=== PATIENT | male | born 1990 | race African-American/Black ===

== ENCOUNTER 2020-01-09 10:35 | Emergency (ER) | payer OTHER, SELFPAY ==
[2020-01-09 10:48] VITALS: BP 158/99; PULSE 79; RESP 14; TEMP 36.6; O2SAT 100
[2020-01-09 11:16] VITALS: BP 118/75; PULSE 78; RESP 16; O2SAT 100
--- NOTE | 2020-01-09 11:16 | PC.NURSE ---
PT CARE ASSUMED AT THIS TIME AFTER REPORT FROM [facility].
--- NOTE | 2020-01-09 11:17 | ED.EAR ---
HPI - Ear Problem General Chief complaint: Ear Stated complaint: fever, cough, ST Time Seen by Provider: 01/09/20 11:12 Source: patient Mode of arrival: ambulatory Limitations: no limitations History of Present Illness HPI Narrative: This is a 29-year-old male that presents the emergency department for left ear pain since yesterday. Reports mild cough, and congestion for the last 3 days. Reports yesterday his left ear started to become painful. Denies fever or drainage. Related Data Home Medications Medication Instructions Recorded Confirmed insulin glargine [Basaglar KwikPen unit SUBCUT 01/09/20 U-100 Insulin] insulin lispro [Humalog KwikPen unit SUBCUT 01/09/20 Insulin] Allergies Allergy/AdvReac Type Severity Reaction Status Date / Time shellfish derived Allergy Severe Anaphylactic Verified 01/09/20 10:51 Shock iodine Allergy Unknown Anaphylactic Verified 01/09/20 10:51 Shock Review of Systems Review of Systems: Narrative: CONSTITUTIONAL: Denies fever ENT: Reports congestion, and otalgia. Denies sore throat RESPIRATORY: Reports cough. Denies dyspnea. All systems reviewed & are unremarkable except as noted in HPI and below PMFSH Past Medical History Medical History (Updated 01/09/20 @ 11:24 by Nicole Garcia PA-C) History of diabetes mellitus Social History Social History Smoking status: Never smoker Second hand tobacco smoke exposure: No Gender identity (if verbalized by the patient): Male Exam Narrative: Exam Narrative: GENERAL: Well-appearing, obese, and in no acute distress. HEAD: Normocephalic, atraumatic. EYES: EOMI. ENT: Turbinates swollen and pale. Mucous membranes moist. Oropharynx without tonsillar hypertrophy exudate or other lesions. Bilateral TMs pearly dupont non-bulging. Left external auditory canal with mild irritation and erythema NECK: Supple. No adenopathy or masses. CHEST: Clear to auscultation. No respiratory distress. No wheezes rales or rhonchi HEART: Regular rate and rhythm. No murmur heard. Normal peripheral pulses. EXTREMITIES: Normal range of motion. No edema. SKIN: Warm, dry, no rash. NEURO: No focal deficits. Alert and oriented x3. PSYCH: Normal mood and affect Course Vital Signs Vital signs: Vital Signs Temperature 97.8 F 01/09/20 10:48 Pulse Rate 79 01/09/20 10:48 Respiratory Rate 14 01/09/20 10:48 Blood Pressure 158/99 H 01/09/20 10:48 Pulse Oximetry 100 01/09/20 10:48 Temperature 97.8 F 01/09/20 10:48 Pulse Rate 78 01/09/20 11:16 Respiratory Rate 16 01/09/20 11:16 Blood Pressure 118/75 01/09/20 11:16 Pulse Oximetry 100 01/09/20 11:16 Medical Decision Making MDM Narrative Medical decision making narrative: Patient presents the emergency department for cold symptoms x3 days. Reports left ear pain since yesterday. Patient is afebrile and nontoxic-appearing. Lungs are clear on exam. Left external auditory canal with mild irritation and erythema. Patient will be started on antibiotic eardrops. He is to follow-up with his primary care doctor. He was given warnings to return to the ER Vital Signs Vital Signs: Vital Signs Temperature 97.8 F 01/09/20 10:48 Pulse Rate 79 01/09/20 10:48 Respiratory Rate 14 01/09/20 10:48 Blood Pressure 158/99 H 01/09/20 10:48 Pulse Oximetry 100 01/09/20 10:48 Temperature 97.8 F 01/09/20 10:48 Pulse Rate 78 01/09/20 11:16 Respiratory Rate 16 01/09/20 11:16 Blood Pressure 118/75 01/09/20 11:16 Pulse Oximetry 100 01/09/20 11:16 Critical Care Time Critical Care Time Critical Care Time: No Discharge Plan Discharge Clinical Impression: Otitis externa Qualifiers: Otitis externa type: unspecified type Chronicity: acute Laterality: left Qualified Code(s): H60.502 - Unspecified acute noninfective otitis externa, left ear Patient Disposition: Home, Self-Care Condition: Stable Instructions: Otitis Externa (ED) Add
[2020-01-09 11:44] VITALS: BP 134/58; PULSE 75; RESP 16; O2SAT 100
== END 2020-01-09 11:45 | disposition home or self-care (01) ==
PROVIDERS: Emergency Provider Emergency Medicine
DX: H60.502 Unspecified acute noninfective otitis externa, left ear (principal); E11.9 Type 2 diabetes mellitus without complications
CPT/HCPCS: 99283

== ENCOUNTER 2020-04-13 16:54 | Emergency (ER) | payer OTHER, SELFPAY ==
[2020-04-13 17:12] VITALS: BP 145/82; PULSE 93; RESP 18; TEMP 37.1; O2SAT 99
[2020-04-13] MEDS: IBUPROFEN 400 MG TABLET 800 MG PO (17:34)
--- NOTE | 2020-04-13 17:53 | ED.GENADULT ---
HPI - General Adult General Chief complaint: Wound/Laceration Stated complaint: LUMP ON MY BACK Time Seen by Provider: 04/13/20 17:01 Source: patient Mode of arrival: ambulatory Limitations: no limitations History of Present Illness HPI narrative: Patient is a 29-year-old male who presents to emergency department for evaluation of wound to the upper thoracic back that has been present now for over a week patient notes that is gradually increased in size with moderate aching pain worse with palpation and touch patient denies any fever chills nausea vomiting. Patient notes he is a diabetic and states that his blood sugars run from 1 50-200 normal and have been. Patient on arrival is in the room in no distress and has not taken anything for his symptoms Related Data Home Medications Medication Instructions Recorded Confirmed insulin glargine [Basaglar KwikPen unit SUBCUT 01/09/20 U-100 Insulin] insulin lispro [Humalog KwikPen unit SUBCUT 01/09/20 Insulin] Allergies Allergy/AdvReac Type Severity Reaction Status Date / Time shellfish derived Allergy Severe Anaphylactic Verified 01/09/20 10:51 Shock iodine Allergy Unknown Anaphylactic Verified 01/09/20 10:51 Shock Review of Systems Review of Systems: All systems reviewed & are unremarkable except as noted in HPI and below PMFSH Past Medical History Medical History History of diabetes mellitus Social History Social History Smoking status: Never smoker Second hand tobacco smoke exposure: No Gender identity (if verbalized by the patient): Male Exam Narrative: Exam Narrative: GENERAL: Well-appearing, well-nourished, and in no acute distress. HEAD: Normocephalic, atraumatic. EYES: PERRLA and EOMI. ENT: Nares clear, no rhinorrhea or epistaxis. Mucous membranes moist. CHEST: Clear to auscultation. No respiratory distress. No wheezes rales or rhonchi HEART: Regular rate and rhythm. No murmur heard. EXTREMITIES: Normal range of motion. No edema. SKIN: Warm, dry, no rash. Patient with tender swollen fluctuant lesion overlying the upper thoracic midline region between the scapula slight redness no drainage. Area measures approximately 9 cm in diameter NEURO: No focal deficits. Alert and oriented x3. Cranial nerves II through XII grossly intact PSYCH: Normal mood and affect. Course Course Emergency Course: Patient in the room aware of case findings treatment plan and diagnosis agreeing to follow-up as directed with general surgery is aware of discussion with surgery and will follow with them this week Consultations Consultation #1: Discussed case with general surgery who will follow the patient this week recommends packing the wound oral antibiotics Date: 04/13/20 Time: 17:55 Vital Signs Vital signs: Vital Signs Temperature 98.7 F 04/13/20 17:12 Pulse Rate 93 04/13/20 17:12 Respiratory Rate 18 04/13/20 17:12 Blood Pressure 145/82 H 04/13/20 17:12 Pulse Oximetry 99 04/13/20 17:12 Temperature 98.7 F 04/13/20 17:12 Pulse Rate 93 04/13/20 17:12 Respiratory Rate 18 04/13/20 17:12 Blood Pressure 145/82 H 04/13/20 17:12 Pulse Oximetry 99 04/13/20 17:12 Procedures Abscess I/D back: Date of Incision: 04/13/20 Time of Incision: 17:56 Local Anesthetic: lidocaine 1% Technique: needle aspiration and incised with #11 blade Irrigation: Yes Packing used?: iodoform I&D Results: Pus (25 mL of purulent drainage obtained) Abcess I&D Additional Comments: Patient tolerated procedure without difficulty iodoform packing was placed post procedure Medical Decision Making MDM Narrative Medical decision making narrative: Patient with abscess that was I&D in the emergency department with iodoform packing afebrile nontoxic-appearing will follow with general surgery this
== END 2020-04-13 18:39 | disposition home or self-care (01) ==
PROVIDERS: Emergency Provider Emergency Medicine
DX: L02.212 Cutaneous abscess of back [any part, except buttock and flank] (principal); E11.9 Type 2 diabetes mellitus without complications; Z79.4 Long term (current) use of insulin
CPT/HCPCS: 10061; 99283; A9270

== ENCOUNTER 2020-05-10 12:55 | Outpatient (CLI) | payer OTHER, SELFPAY ==
--- NOTE | 2020-05-10 12:57 | ECG_ITS ---
Measurements Intervals Winder Rate: 74 P: 46 VT: 161 QRS: 5 QRSD: 94 T: 9 QT: 356 QTc: 397 Interpretive Statements SINUS RHYTHM NORMAL ECG Electronically Signed On 05-10-2020 13:31:26 CDT by Wade Torres D.O.
[2020-05-10 13:31] LABS: Hematocrit 41.8 % (42.0-52.0); Hemoglobin 13.3 g/dL (14.0-18.0); Immature Platelet Fraction Pct 10.9 % (0.9-11.2); Mean Corpuscular HGB Conc 31.8 g/dl (32-36); Mean Corpuscular Hemoglobin 25.6 pg (26-34); Mean Corpuscular Volume 80.5 fl (80-100); Mean Platelet Volume 13.1 fl (7.4-10.4); Platelet Count Result 202 k/mm3 (150-375); Red Blood Count 5.19 M/mm3 (4.6-6.20); Red Cell Distribution Width 14.9 % (11.5-14.5); White Blood Count 4.8 K/mm3 (4.5-10.0)
[2020-05-10 13:47] LABS: Blood Urea Nitrogen 13 mg/dL (9-20); Calcium 8.9 mg/dL (8.4-10.2); Carbon Dioxide 25 mmol/L (22-30); Chloride 103 mmol/L (98-107); Estimated Glomerular Filt Rate > 60; Glucose 309 mg/dL (75-110); Sodium 136 mmol/L (137-145)
[2020-05-10 13:53] LABS: Potassium 4.2 mmol/L (3.4-5.0)
== END 2020-05-10 12:56 | disposition home or self-care (01) ==
LOC: ANHSURGERY 12:57
PROVIDERS: Anesthesiology; Visit Provider Surgery
DX: L02.212 Cutaneous abscess of back [any part, except buttock and flank] (principal); Z86.39 Personal history of other endocrine, nutritional and metabolic disease
CPT/HCPCS: 36415; 80048; 85027; 85055; 93005

== ENCOUNTER 2020-05-14 01:10 | Outpatient (CLI) | payer OTHER, SELFPAY ==
[2020-05-14 18:05] LABS: SARS-CoV-2 RNA PCR Negative
== END 2020-05-14 01:11 | disposition home or self-care (01) ==
LOC: ANHCOVIDDT 01:11
PROVIDERS: Visit Provider Surgery
DX: Z01.812 Encounter for preprocedural laboratory examination (principal); Z11.59 Encounter for screening for other viral diseases
CPT/HCPCS: 87635; C9803; U0003

== ENCOUNTER 2020-05-17 03:49 | Day surgery (SDC) | payer OTHER, SELFPAY ==
[2020-05-05 15:14] VITALS: BMI 34.3
--- NOTE | 2020-05-17 10:54 | WPDANESEPPF ---
Anes - Initial Pre Proc Eval Procedure: Operation Date: 05/17/20 12:00 Proposed Procedures p Incision and Drainage, Washout of Abscess Mid Upper Back - Fred Clark MD Date/Time: 05/17/20 10:54 Surgeon: Fred Clark MD Pre Op Diagnosis: abscess mid upper back Patient Data Age: 29 Gender: M Height: 6 ft 3 in Weight: 124.74 kg Allergies Allergy/AdvReac Type Severity Reaction Status Date / Time shellfish derived Allergy Severe Anaphylactic Verified 05/05/20 15:15 Shock iodine Allergy Unknown Anaphylactic Verified 05/05/20 15:14 Shock Home Medications Medication Instructions Recorded Confirmed Type insulin glargine [Basaglar KwikPen 56 unit SUBCUT DAILY 01/09/20 05/05/20 History U-100 Insulin] insulin lispro [Humalog KwikPen See Rx Instructions .ROUTE .COMPLEX 01/09/20 05/05/20 History Insulin] cephalexin [Keflex] 500 mg PO Q6H 10 Days #40 cap 04/13/20 05/05/20 Rx hydrocodone 5 mg-acetaminophen 325 1 tablet PO Q6H PRN #10 tablet 05/05/20 05/05/20 Rx mg tablet ibuprofen 800 mg tablet 800 mg PO TID PRN #7 tablet 05/05/20 05/05/20 Rx lisinopril 20 mg PO DAILY 05/05/20 05/05/20 History metformin 1,000 mg PO DAILY 05/05/20 05/05/20 History Patient hx anesthesia problems: none Family hx anesthesia problems: none PMFSH Past Medical History Medical History (Updated 05/17/20 @ 10:53 by Michael Valdez MD) Asthma History of diabetes mellitus Hypertension Surgical History Surgical History History of incision and drainage 2017 on left arm Status post incision and drainage Social History Social History Smoking status: Never smoker Second hand tobacco smoke exposure: No Alcohol intake: current Drinks per week: 1 Substance use: never Additional occupation/education comments: security Gender identity (if verbalized by the patient): Male Spiritual care concerns: No Anes - Eval Final PreProcedure Day of Procedure 05/17/20 10:54 Patient weight: obese Heart: regular rate and rhythm Lungs: clear to auscultation Airway: Mallampati scale class III Neurological: alert and oriented Last oral intake: >/= 8 hours ASA classification: III Emergent: no Anesthetic plan: proceed Anesthesia type and monitoring: general LMA and standard monitoring Informed Consent: The patient's anesthetic plan and its attendant risks and benefits were discussed with the patient/family/POA. Questions were solicited and answers provided to the satisfaction of the patient/family/POA.
[2020-05-17] MEDS: LACTATED RINGERS 1,000 ML 30 ML IV CONT (11:46)
[2020-05-17 11:48] LABS: Glucose Point of Care 276 (65-105)
[2020-05-17 11:55] VITALS: BP 148/94; PULSE 78; RESP 17; TEMP 36.4; O2SAT 100
--- NOTE | 2020-05-17 13:04 | WPDHPUPDATE1 ---
History and Physical Update Update Date/Time: 05/17/20 13:04 History and Physical has been reviewed, including an updated exam of the patient. There are changes in the patient's condition. The patient has been following with the wound care clinic. Continues to have purulent drainage from a small opening over the abscess on his upper back. Risks, benefits, and alternatives of a further incision and drainage with washout of deep subcutaneous abscess on his upper back have been discussed and questions answered. Patient agrees to proceed with procedure.
[2020-05-17] MEDS: ceFAZolin 3 GM/D5W 100 ML 100 ML IVPB (13:38)
[2020-05-17] MEDS: BUPIVACAINE/EPINEPHRINE 0.5% 30 ML VIAL INFILTRATE (14:02)
[2020-05-17 14:06] VITALS: BP 164/107; PULSE 80
--- NOTE | 2020-05-17 14:18 | PM.PROC ---
Procedure Note - Detailed Date of procedure: 05/19/20 Pre-op diagnosis: abscess mid upper back abscess of Upper mid back Post-op diagnosis: same Procedure performed: Incision and drainage with Pulsavac irrigation of abscess of the upper mid back. Description of procedure: The area of the abscess was marked and time-out performed confirming patient and site of required I and D. Following this the area was prepped with chlorhexidine after using skin prep to remove all of the tape residual from the dressings. Time-out was performed with surgery team and anesthesia positioned him in the left lateral decubitus position with mask anesthesia and G IV S sedation. The area was draped and local anesthetic infiltrated directly over the area of swelling and along side the current abscess formation. After allowing the local anesthetic to work a direct incision was made over the central portion of the area of abscess. The current opening was probed with a hemostat both inferior and superiorly and I used a 15 blade knife to open this more widely such that the opening now measures approximately 2.5 cm in length. Following this a swab culture was taken for Gram stain and C&S and sent to the lab. Following this the Pulsavac unit was used to carefully irrigate out the in wound using 1 L of normal saline. Hemostasis again checked and established with Bovie cautery. Following this we opened 1 package of silver rope (Aquacel Silver dressing) this was packed into the wound loosely with a small tail hanging out. This was covered with 4x4s and micro foam tape. Anesthesia: local and other (GIVS) Surgeon: Fred Clark MD [employer]: none Estimated blood loss (mL): 20 Drains: No Packing: Yes (Aquacell AG+ (18 nches)) Pathology: other (swab for Gram stain and C & S.) Complications: No immediate complications Condition: stable Disposition: same day Findings: A large approximately 5 x 4 cm cavity underneath the surface area of opening to this abscess. There was good granulation tissue within it.
--- NOTE | 2020-05-17 14:27 | SUR.PHASEII ---
Patient drank cranberry juice before outpatient RN was able to get blood sugar.
[2020-05-17 14:35] VITALS: BP 145/84; PULSE 75
== END 2020-05-17 14:55 | disposition home or self-care (01) ==
PROVIDERS: Visit Provider Surgery
PROC: (CPT 10060; principal; 2020-05-17 12:00)
DX: L02.212 Cutaneous abscess of back [any part, except buttock and flank] (principal); E11.9 Type 2 diabetes mellitus without complications; J45.909 Unspecified asthma, uncomplicated; I10 Essential (primary) hypertension; Z79.84 Long term (current) use of oral hypoglycemic drugs; Z79.4 Long term (current) use of insulin; E66.9 Obesity, unspecified; Z68.36 Body mass index [BMI] 36.0-36.9, adult
CPT/HCPCS: 10060; 87070; 87075; 87147; 87186; 87205; A9270; J0690; J1100; J2250; J2405; J2704; J3010; J7120

== ENCOUNTER 2020-06-21 07:28 | Outpatient (RCR) | payer OTHER, SELFPAY ==
[2020-04-26 10:57] VITALS: BMI 34.7
--- NOTE | 2020-05-05 14:18 | WPDWOUNDNOTE ---
Wound Care Note Date/Time: 05/05/20 14:18 History: Mr Hathaway is a 29 year old male that presented to the office after a recent visit to [facility] ER on 04/13/2020 for a back abscess. He reports he first noticed an area becoming irritated about a week before that. He reports that as it became more uncomfortable he thought he needed to have it checked andthat's when he presented to the ER. Wound history: He reports since being in the ER and having the area I&Ded, he is packing the area daily and he is able to get some drainage out when the packing is changed. Patient reports is he was initially taking Keflex 500 mg that was prescribed while in the ER, and he was instructed to take this until finished. He was on a 10 day course of antibiotic. Since that time we saw him twice the office but he was not getting a packed deeply enough at home. He wanted help packing it so we sent him to the wound clinic. He has been seen twice or 3 times in the wound clinic and there packet twice a week but he is not really having any body packet at home. He is diabetic in his blood sugars are neutral E were out of control over 200. Therefore, I think this is having trouble healing. Wound approximation: No Wound width: 0.5 cm Wound length: 0.8 cm Wound depth: 3 cm Drainage: Somewhat grayish red on the dressings and then slightly bloody with packing Surrounding tissue appearance: patient is black and the surrounding skin is not specifically unusual. Tunneling: Wound does tunnel in 2 directions upon probing. Percentage granulation tissue: Unknown as one can barely see in the wound since he opening is small. Treatment/Procedures: I have talked with patient at this time about continuing packing but that the opening is probably too small with his diabetes and the current problems with his packing such that he is not healing in. I think this should have healed by now and the infection cleared. However he is typically running blood sugars as high as 200 and the last 2 days as high as 150. He does not pack the wound except for the 2 days that he comes to the wound clinic. He again stated today that his family does not want anything to do with it because they can't stand the site of blood. Therefore, I think he would be better off consider having a surgical intervention for this. I would recommend under G IV S plus local anesthesia enlarging the incision, washing this out well, and packing it with silver rope such that it can be packed 3 times a week and heal in from the inside out better. States he is agreeable to same. Dressings: For now continue iodoform quarter-inch Nu Gauze until surgical intervention can be done.
--- NOTE | 2020-05-26 12:01 | WPDWOUNDNOTE ---
Wound Care Note Date/Time: 05/26/20 12:01 Pt seen at 11:40 History: History: Mr Hathaway is a 29 year old male that presented to the office after a recent visit to [facility] ER on 04/13/2020 for a back abscess. He reports he first noticed an area becoming irritated about a week before that. He reports that as it became more uncomfortable he thought he needed to have it checked and that's when he presented to the ER. Patient subsequently has had a incision and drainage in the OR to make the opening bigger an to rinse out the wound. It is now easily packed with silver rope. . Wound history: Wound history: He reports since being in the ER and having the area I&Ded, he is packing the area daily and he is able to get some drainage out when the packing is changed. Patient reports is he was initially taking Keflex 500 mg that was prescribed while in the ER, and he was instructed to take this until finished. He was on a 10 day course of this antibiotic. Since that time we saw him twice the office but he was not getting it packed deeply enough at home. He wanted help packing it so we sent him to the wound clinic. He has been seen twice or 3-5 times in the wound clinic and they have been packing it twice a week but he is not really having anybody pack it at home. He is diabetic and his blood sugars are out of control over 200. Therefore, I think this is having trouble healing. Subsequently approximately 1 week ago he was brought to the OR and we did an incision and drainage making the opening approximately 2 cm x 1 cm in size. It was irrigated and then packed with silver rope. He states that at home his family has now been able to pack it without much difficulty and a packed it once between the OR and his current visit at the wound clinic. Drainage: serous Surrounding tissue appearance: normal Tunneling: mildly under Rt. side of the wound. Percentage granulation tissue: 100 % Treatment/Procedures: Continued packing with silver rope and covering with 4 x 4 gauze and tape. Patient is also washing his back 3 times a week with Hibiclens. He will continue with 1 more week of b.i.d. doxycycline. Dressings: Packing with silver rope coverage with 4x4s and tape.
--- NOTE | 2020-06-09 14:43 | WPDWOUNDNOTE ---
Wound Care Note Date/Time: 06/09/20 10:20 History: Mr Hathaway is a 29 year old male that presented to the office after a recent visit to [facility] ER on 04/13/2020 for a back abscess. He reports he first noticed an area becoming irritated about a week before that. He reports that as it became more uncomfortable he thought he needed to have it checked and that's when he presented to the ER. Patient subsequently has had a incision and drainage in the OR by Dr. Clark on 05/17/20 to make the opening bigger and to rinse out the wound. Wound history: He was then packing the incision daily and was initially taking Keflex that was prescribed by the ER. He finished a 10-day course of this antibiotic. He was then seen in the wound clinic a few times post-op and once with Dr. Clark to follow this wound. The last appointment he was instructed to continue packing the incision with silver rope and cover with gauze. He was given 1 more week of BID doxycycline. The patient is seen in the wound clinic today for a wound recheck. He also has been washing the back of his neck twice weekly with Hibiclens. The patient denies any changes in the wound. He is still having family help with dressing changes. No significant change in drainage or any pain. No other complaints at this time. Wound approximation: No Wound width: 0.4 cm Wound length: 1.7 cm Wound depth: 1.5 cm Drainage: Serosanguineous Surrounding tissue appearance: Healing. No significant induration or erythema. No expression of any purulent drainage with firm palpation around the incision opening. Tunneling: None Percentage granulation tissue: 100% Treatment/Procedures: Wound assessment and dressing change. Also applied some silver nitrate to granulation tissue that had some minor bleeding. Dressings: Packed with small amount of silver Ag rope, covered with ABD pad and tape. Assessment and Plan Assessment and plan (1) Back abscess: Code(s): L02.212 - Cutaneous abscess of back [any part, except buttock] Status: Acute Assessment and Plan: Continue to pack silver Ag rope into the wound to help wick out drainage and cover with ABD pad and tape. This should be done daily after washing over with soap and water. Continue using the Hibiclens to the back of the neck twice weekly. We recommend you use this on your back as well once the wound has completely healed. Finish the rest of the prescription of the BID doxycycline to complete the course of the antibiotic. Dr. Clark will plan to see the patient again in the wound clinic in follow-up in a few weeks. Call sooner with any questions or concerns. (2) History of diabetes mellitus: Code(s): Z86.39 - Personal history of other endocrine, nutritional and metabolic disease Status: Acute (3) Hx of hidradenitis suppurativa: Code(s): Z87.2 - Personal history of diseases of the skin and subcutaneous tissue Status: Acute Review of Systems Review of Systems: All systems reviewed & are unremarkable except as noted in HPI and below Exam Const: General: comfortable, no acute distress and awake Nutritional Appearance: obese Orientation/consciousness: patient oriented x3 Skin: Other: Mid upper back wound healing well with decrease in size of measurements from last assessment (see above). [place] granulation tissue forming. No surrounding signs of infection or purulent drainage on assessment. Neuro: General: moves all extremities and no focal motor deficits Psych: Mental Status: mental status grossly normal Thought process: Normal thought process present Insight: Good insight present (Psych) Judgement: Good judgement present (Psych)
== END 2020-07-13 08:18 | disposition home or self-care (01) ==
LOC: ANHWOC 07:28
PROVIDERS: Visit Provider Surgery
DX: L02.212 Cutaneous abscess of back [any part, except buttock and flank] (principal)
CPT/HCPCS: 99212; 99213; A9270; G0463

== ENCOUNTER 2020-08-12 06:39 | Emergency (ER) | payer OTHER, SELFPAY ==
[2020-08-12 06:49] VITALS: BP 171/109; PULSE 105; RESP 20; TEMP 36.2; O2SAT 98
[2020-08-12 06:53] LABS: Glucose Point of Care 279 (65-105)
[2020-08-12 07:30] LABS: Glucose Point of Care 179 (65-105)
--- NOTE | 2020-08-12 07:44 | PC.NURSE ---
Pt has breakfast tray at bedside
--- NOTE | 2020-08-12 07:59 | ED.GENADULT ---
HPI - General Adult General Chief complaint: Unspecified Stated complaint: took wrong insulin Time Seen by Provider: 08/12/20 06:51 Source: patient Mode of arrival: ambulatory Limitations: no limitations History of Present Illness HPI narrative: This patient is 30 year old male with Diabetes mellitus who presents for evaluation of accidental insulin overdose. HE states over 1 hour ago he accidentally injected 40 units of short acting insulin. His intention was to inject 40 units of his long acting insulin. His only complaint is bilateral leg cramping that occurs with dropping of his insulin. He denies nausea, vomiting, chest pain or sob. Related Data Home Medications Medication Instructions Recorded Confirmed Basaglar KwikPen U-100 Insulin 56 unit SUBCUT DAILY 01/09/20 05/05/20 insulin lispro [Humalog KwikPen See Rx Instructions .ROUTE .COMPLEX 01/09/20 05/05/20 Insulin] lisinopril 20 mg PO DAILY 05/05/20 05/05/20 metformin 1,000 mg PO DAILY 05/05/20 05/05/20 Allergies Allergy/AdvReac Type Severity Reaction Status Date / Time shellfish derived Allergy Severe Anaphylactic Verified 05/05/20 15:15 Shock iodine Allergy Unknown Anaphylactic Verified 05/05/20 15:14 Shock Review of Systems Review of Systems: All systems reviewed & are unremarkable except as noted in HPI and below PMFSH Past Medical History Medical History (Updated 08/12/20 @ 08:38 by Che Bay MD) Asthma History of diabetes mellitus Hypertension Surgical History Surgical History History of incision and drainage 2017 on left arm Status post incision and drainage Family History Family History Unknown Diabetes mellitus Social History Social History Smoking status: Never smoker Second hand tobacco smoke exposure: No Alcohol intake: current Drinks per week: 1 Substance use: never Additional occupation/education comments: security Gender identity (if verbalized by the patient): Male Spiritual care concerns: No Exam Narrative: Exam Narrative: GENERAL: Well-appearing, well-nourished, and in no acute distress.obese HEAD: Normocephalic, atraumatic EYES: PERRLA and EOMI, conjunctiva clear without discharge THROAT:Mucous membranes moist, Oropharynx normal without erythema, exudate, peritonsillar swelling or fluctuance NECK: Supple, without lymphadenopathy or mass RESPIRATORY: No respiratory distress, Airway patent, Respirations non-labored, Clear to auscultation without rales, rhonchi or wheeze HEART: Regular rate and rhythm. No murmur heard. Normal peripheral pulses. ABDOMEN: Soft, nontender, nondistended, normal active bowel sounds. No masses. No rebound or guarding, No organomegaly. EXTREMITIES: No edema, normal strength with full range of motion. SKIN: Warm, dry, normal color without rash NEURO: Alert and oriented x3. CN 2-12 grossly intact. No focal deficits. PSYCH: Normal mood and affect. Course Reevaluation(s) Reevaluation #1: PAtient has no complaints. I have discussed with him that his insulin will be working for 8 hours. He is asking to be discharged. I asked if would be willing to wait for discharge. 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 He has a glucometer and he wants to be discharged. Date: 08/12/20 Time: 08:35 Vital Signs Vital signs: Vital Signs Temperature 97.2 F L 08/12/20 06:49 Pulse Rate 105 H 08/12/20 06:49 Respiratory Rate 20 08/12/20 06:49 Blood Pressure 171/109 H 08/12/20 06:49 Pulse Oximetry 98 08/12/20 06:49 Temperature 97.2 F L 08/12/20 06:49 Pulse Rate 105 H 08/12/20 06:49 Respiratory Rate 20 08/12/20 06:49 Blood Pressure 171/109 H 08/12/20 06:49 Pulse Oximetry 98 08/12/20 06:49 Medical Decision Making
[2020-08-12 08:30] LABS: Glucose Point of Care 190 (65-105)
== END 2020-08-12 08:46 | disposition home or self-care (01) ==
PROVIDERS: Emergency Provider General Practice; PCP Physician Assistant Medical
DX: T38.3X1A Poisoning by insulin and oral hypoglycemic [antidiabetic] drugs, accidental (unintentional), initial encounter (principal); E11.9 Type 2 diabetes mellitus without complications; J45.909 Unspecified asthma, uncomplicated; I10 Essential (primary) hypertension; Z79.4 Long term (current) use of insulin
CPT/HCPCS: 82948; 99282

== ENCOUNTER 2021-05-12 20:20 | Emergency (ER) | payer OTHER, SELFPAY ==
--- NOTE | ~2021-05-12 | XR_ITS ---
EXAMINATION: XR chest 2V 05/12/2021 20:44 INDICATION: Shortness of breath. Sternal chest pain PROCEDURE: PA and lateral views of the chest COMPARISON: 02/10/2019 FINDINGS: The lungs are clear. The cardiomediastinal silhouette is within normal limits. There are no pleural effusions. There is no pneumothorax suspected. IMPRESSION: 1: NO ACUTE CARDIOPULMONARY DISEASE. Reviewed, dictated and finalized at location A.
[2021-05-12 20:33] VITALS: BP 151/71; PULSE 87; RESP 20; TEMP 36.9; O2SAT 100
--- NOTE | 2021-05-12 20:36 | ECG_ITS ---
Measurements Intervals [place] Rate: 85 P: 56 OK: 107 QRS: -25 QRSD: 109 T: -19 QT: 337 QTc: 402 Interpretive Statements SINUS OR ECTOPIC ATRIAL RHYTHM WITH SHORT OK INTERVAL BORDERLINE T WAVE ABNORMALITY- INFERIOR LEADS BORDERLINE ECG Electronically Signed On 05-13-2021 6:26:43 CDT by Wade Torres D.O.
--- NOTE | 2021-05-12 21:32 | ED.SOB ---
HPI - SOB/Dyspnea General Chief Complaint: Shortness of Breath/Dyspnea Stated Complaint: SOB Time Seen by Provider: 05/12/21 21:21 Source: patient Mode of arrival: ambulatory Limitations: no limitations History of Present Illness HPI Narrative: This is a 30 year old male that presents to the ER for shortness of breath x 2 days. Reports history of asthma and that he has been out of his Albuterol inhaler. Reports a tightness in his chest like he can't catch a deep breath. Denies fever, cough or lower extremity edema. Related Data Home Medications Medication Instructions Recorded Confirmed Basaglar KwikPen U-100 Insulin 56 unit SUBCUT DAILY 01/09/20 05/05/20 insulin lispro [Humalog KwikPen See Rx Instructions .ROUTE .COMPLEX 01/09/20 05/05/20 Insulin] lisinopril 20 mg PO DAILY 05/05/20 05/05/20 metformin 1,000 mg PO DAILY 05/05/20 05/05/20 Allergies Allergy/AdvReac Type Severity Reaction Status Date / Time shellfish derived Allergy Severe Anaphylactic Verified 05/12/21 20:35 Shock iodine Allergy Unknown Anaphylactic Verified 05/12/21 20:35 Shock Review of Systems Review of Systems: Narrative: CONSTITUTIONAL: Denies fever CARDIOVASCULAR: Reports chest tightness. Denies edema. RESPIRATORY: Reports dyspnea. Denies cough All systems reviewed & are unremarkable except as noted in HPI and below PMFSH Past Medical History Medical History (Updated 05/12/21 @ 22:31 by Nicole Garcia PA-C) Asthma History of diabetes mellitus Hypertension Surgical History Surgical History History of incision and drainage 2017 on left arm Status post incision and drainage Family History Family History Unknown Diabetes mellitus Social History Social History Smoking status: Never smoker Second hand tobacco smoke exposure: No Alcohol intake: current Drinks per week: 1 Substance use: never Additional occupation/education comments: security Gender identity (if verbalized by the patient): Male Spiritual care concerns: No Exam Narrative: Exam Narrative: GENERAL: Well-appearing, well-nourished, and in no acute distress. HEAD: Normocephalic, atraumatic. EYES: EOMI. ENT: Nares clear, no rhinorrhea or epistaxis. Mucous membranes moist. Oropharynx without tonsillar hypertrophy exudate or other lesions. Bilateral TMs pearly dupont non-bulging NECK: Supple. No adenopathy or masses. CHEST: Clear to auscultation. No respiratory distress. No wheezes rales or rhonchi HEART: Regular rate and rhythm. No murmur heard. Normal peripheral pulses. EXTREMITIES: Normal range of motion. No edema. SKIN: Warm, dry, no rash. NEURO: No focal deficits. Alert and oriented x3. PSYCH: Normal mood and affect Course Vital Signs Vital signs: Vital Signs Temperature 98.4 F 05/12/21 20:33 Pulse Rate 87 05/12/21 20:33 Respiratory Rate 05/12/21 20:33 Blood Pressure 151/71 H 05/12/21 20:33 Pulse Oximetry 100 05/12/21 20:33 Temperature 98.4 F 05/12/21 20:33 Pulse Rate 87 05/12/21 20:33 Respiratory Rate 20 05/12/21 20:33 Blood Pressure 151/71 H 05/12/21 20:33 Pulse Oximetry 100 05/12/21 20:33 MDM - SOB/Dyspnea MDM Narrative Medical decision making narrative: Patient presents to the emergency department for shortness of breath x2 days. Has history of asthma, has been out of his albuterol inhaler. He is afebrile and nontoxic-appearing. Chest x-ray is without acute findings. EKG without concerning changes. Patient refused any further laboratory evaluation. He reports relief with albuterol inhaler in the ED. He is stable and felt appropriate for further outpatient evaluation. Instructed to follow-up with his primary doctor. He was given warnings to return to the ER Imaging Data Radiologist's impression: ITS Impressions
[2021-05-12] MEDS: ALBUTEROL SULFATE (*SP) AEROSOL 1 PUFF 4 PUFF INHALATION (21:43)
[2021-05-12 22:36] VITALS: BP 149/99; PULSE 85; RESP 16; O2SAT 99
== END 2021-05-12 22:38 | disposition home or self-care (01) ==
PROVIDERS: Emergency Provider Emergency Medicine
DX: J45.20 Mild intermittent asthma, uncomplicated (principal); I10 Essential (primary) hypertension; E11.9 Type 2 diabetes mellitus without complications; Z79.4 Long term (current) use of insulin
CPT/HCPCS: 71046; 93005; 99283; A9270